=== PATIENT | male | born 1970 | race Caucasian/White ===

== ENCOUNTER 2017-12-19 19:42 | Inpatient (IN) | payer MEDICAID, OTHER ==
[~2017-12-19] VITALS: Ht 177.8 cm; Wt 77.8 kg
[2017-12-19 22:07] LABS: RED BLOOD COUNT 5.26 X10'6 (4.70-6.10); WHITE BLOOD COUNT 25.1 X10'3 (4.5-11.0)
[2017-12-19 22:08] LABS: HEMATOCRIT 51.3 % (42.0-52.0); HEMOGLOBIN 17.6 g/dl (14.0-17.9); MEAN CORPUSCULAR HEMOGLOBIN 33.4 PG (27.0-31.0); MEAN CORPUSCULAR HGB CONC 34.2 % (33.0-36.5); MEAN CORPUSCULAR VOLUME 97.6 FL (78-98); PLATELET COUNT 218 X10'3 (140-440); RED CELL DISTRIBUTION WIDTH 13.8 % (11.5-14.5)
[2017-12-19 22:13] LABS: ALBUMIN 5.4 G/DL (3.4-5.0); ALBUMIN/GLOBULIN RATIO 1.6 (1.1-1.5); ALKALINE PHOSPHATASE 113 IU/L (46-116); ANION GAP 23 (8-16); BILIRUBIN,TOTAL 0.7 MG/DL (0.1-1.0); BLOOD UREA NITROGEN 67 MG/DL (7-18); BUN/CREATININE RATIO 9.5 (5.4-32.0); CALCIUM 7.1 MG/DL (8.5-10.1); CHLORIDE 96 MMOL/L (99-107); CREATININE 7.05 MG/DL (0.60-1.10); GLUCOSE 161 MG/DL (70-104); SODIUM 140 MMOL/L (135-145); TOTAL CARBON DIOXIDE 21.4 MMOL/L (24-32); TOTAL PROTEIN 8.7 G/DL (6.4-8.2); eGFR 8 ML/MIN
[2017-12-19 22:14] LABS: ETHANOL < 0.010 GM/DL (0.0-0.010)
[2017-12-19 22:18] LABS: CLARITY,URINE CLEAR (Clear); COLOR,URINE BROWN (Yellow); GLUCOSE, URINE NEGATIVE (Neg); KETONES,URINE TRACE mg/dl (Neg); LEUKOCYTE ESTERASE ,URINE NEGATIVE (Neg); NITRITES, URINE NEGATIVE (Neg); OCCULT BLOOD,URINE LARGE (Neg); PH,URINE 5.5 (4.8-8.0); PROTEIN,URINE 100 mg/dl (Neg); UROBILINOGEN,URINE 0.2 E.U/dL (0.2-1.0)
[2017-12-19 22:24] LABS: TOTAL CELLS COUNTED 100
[2017-12-19 22:25] LABS: PLATELET ESTIMATE NORMAL
[2017-12-19 22:27] LABS: URINE AMPHETAMINE SCREEN NEGATIVE (Neg); URINE BARBITUATE SCREEN NEGATIVE (Neg); URINE BENZODIAZEPINES SCREEN NEGATIVE (Neg); URINE CANNABINOID SCREEN POSITIVE (Neg); URINE COCAINE SCREEN NEGATIVE (Neg); URINE METHADONE SCREEN NEGATIVE (Neg); URINE OPIATE SCREEN NEGATIVE (Neg); URINE PHENCYCLIDINE SCREEN NEGATIVE (Neg)
[2017-12-19 22:34] LABS: UA COLLECTION TYPE CLN CATCH MIDSTREAM
[2017-12-19 22:35] LABS: AMORPHOUS URATES 1+; COARSE GRANULAR CAST 0-3 /LPF (NEGATIVE); FINE GRANULAR CAST 0-3 /LPF (NEGATIVE)
[2017-12-19 22:36] LABS: BACTERIA,URINE 1+ /HPF (Neg); CELLULAR CAST 0-4 /LPF (NEGATIVE); MUCUS STRANDS MODERATE /LPF (Neg); SPERM FEW /HPF (NEGATIVE); SQUAMOUS EPITHELIAL CELL,UR FEW /LPF (FEW); WBC,URINE 0-4 /HPF (0-4)
[2017-12-19 22:38] LABS: ALANINE AMINOTRANSFERASE 1136 U/L (12-78); ASPARTATE AMINO TRANSFERASE 3878 U/L (10-37)
[2017-12-19] MEDS ORDERED: NO HOME MEDS (22:58)
[2017-12-19] MEDS ORDERED: normal saline 1000ml 1,000 ML IV ONE (23:10)
[2017-12-19 23:30] LABS: ABG BASE EXCESS -10.4 mmol/L (-2.0-3.0); ABG HCO3 14.5 mmol/L (22.0-26.0); ABG OXYGEN SATURATION 95.5 % (95-98); ABG PCO2 (T) 29.5 mmHg (35.0-48.0); ABG PH (T) 7.308 (7.350-7.450); ABG PO2 (T) 83.4 mmHg (83-108); ALLEN'S TEST Positive; FCOHb 0.4 % (0.5-1.5); FMetHb 0.3 % (0.3-1.12); FO2Hb 94.8 % (94-100); PATIENT TEMPERATURE 36.6; RESPIRATORY RATE (OBSERVED) 16 b/min; TOTAL HEMOGLOBIN 15.4 G/dl (14.0-18.0)
[2017-12-19] MEDS ORDERED: CefTRIAXone/D5W-Rocephin 1gm 50 ML IV ONE (23:35)
[2017-12-19] MEDS ORDERED: clindamycin 600mg/D5W 50ml 50 ML IV ONE (23:35)
[2017-12-20] MEDS ORDERED: normal saline 1000ML IV soln IV ONE
[2017-12-20] MEDS ORDERED: normal saline 1000ml 1,000 ML IV ONE (00:05)
[2017-12-20] MEDS ORDERED: acetaminophen 325mg tablet PO PRN ×2 (00:35)
[2017-12-20] MEDS ORDERED: HYDROcodone/acetaminophen 5mg/325mg tablet PO PRN (00:35)
[2017-12-20] MEDS: sodium bicarbonate (8.4%) inj. 150 MEQ in dextrose 5%-water 1,000 ML IV SCH ×3 (01:41→20:37)
[2017-12-20] MEDS: clindamycin 600mg/D5W 50ml 50 ML IV SCH ×4 (01:42→20:01)
[2017-12-20] MEDS: ondansetron/PF 4mg/2ml inj IV PRN (01:55)
[2017-12-20 02:00] VITALS: BP 114/83
[2017-12-20 06:00] VITALS: BP 106/75
[2017-12-20 07:49] LABS: WHITE BLOOD COUNT 18.6 X10'3 (4.5-11.0)
[2017-12-20 07:50] LABS: EOSINOPHILS % (AUTO) 0 % (0-6); HEMATOCRIT 41.3 % (42.0-52.0); HEMOGLOBIN 14.4 g/dl (14.0-17.9); LYMPHOCYTES % (AUTO) 3.6 % (21-51); MEAN CORPUSCULAR HEMOGLOBIN 34.2 PG (27.0-31.0); MEAN CORPUSCULAR HGB CONC 34.8 % (33.0-36.5); MEAN CORPUSCULAR VOLUME 98.3 FL (78-98); MEAN PLATELET VOLUME 9.3 FL (7.4-10.4); MONOCYTES % (AUTO) 2.4 % (2-12); NEUTROPHILS % (AUTO) 93.8 % (42-75); PLATELET COUNT 152 X10'3 (140-440); RED CELL DISTRIBUTION WIDTH 13.5 % (11.5-14.5)
[2017-12-20] MEDS: heparin, porcine 5000 units/ml vial SQ SCH ×2 (07:50→20:02)
[2017-12-20 07:51] LABS: BASOPHILS % (AUTO) 0.2 % (0-1); LYMPHOCYTES # (AUTO) 0.7 X10'3 (1.1-4.8); MONOCYTES # (AUTO) 0.4 X10'3 (0-0.9); NEUTROPHILS # (AUTO) 17.5 X10'3 (1.8-7.7)
[2017-12-20 08:28] LABS: ALANINE AMINOTRANSFERASE 779 U/L (12-78); ALBUMIN 3.8 G/DL (3.4-5.0); ALBUMIN/GLOBULIN RATIO 1.4 (1.1-1.5); ALKALINE PHOSPHATASE 77 IU/L (46-116); ANION GAP 25 (8-16); BILIRUBIN,TOTAL 0.5 MG/DL (0.1-1.0); BLOOD UREA NITROGEN 75 MG/DL (7-18); BUN/CREATININE RATIO 10.1 (5.4-32.0); CHLORIDE 96 MMOL/L (99-107); CREATININE 7.45 MG/DL (0.60-1.10); GLUCOSE 119 MG/DL (70-104); POTASSIUM 5.2 MMOL/L (3.5-5.1); SODIUM 137 MMOL/L (135-145); TOTAL CARBON DIOXIDE 16.1 MMOL/L (24-32); TOTAL PROTEIN 6.5 G/DL (6.4-8.2); eGFR 8 ML/MIN
[2017-12-20 08:39] LABS: ASPARTATE AMINO TRANSFERASE 2236 U/L (10-37)
[2017-12-20 11:00] VITALS: BP 122/82
[2017-12-20 16:30] VITALS: BP 119/79
[2017-12-20 19:00] VITALS: BP 104/71
[2017-12-20] MEDS: lactobacillus rhamnosus 10,000 MMU CELLS/CAPSULE PO SCH (20:02)
[2017-12-20 23:00] VITALS: BP 119/77
[2017-12-21] MEDS: clindamycin 600mg/D5W 50ml 50 ML IV SCH ×4 (02:00→19:58)
[2017-12-21 03:00] VITALS: BP 112/73
[2017-12-21] MEDS: sodium bicarbonate (8.4%) inj. 150 MEQ in dextrose 5%-water 1,000 ML IV SCH ×3 (04:24→16:42)
[2017-12-21 06:00] VITALS: BP 121/81
[2017-12-21 06:59] LABS: BASOPHILS % (AUTO) 0.2 % (0-1); LYMPHOCYTES # (AUTO) 0.9 X10'3 (1.1-4.8)
[2017-12-21 07:23] LABS: ALANINE AMINOTRANSFERASE 692 U/L (12-78); ALBUMIN 3.3 G/DL (3.4-5.0); ALBUMIN/GLOBULIN RATIO 1.2 (1.1-1.5); ALKALINE PHOSPHATASE 69 IU/L (46-116); ANION GAP 19 (8-16); BILIRUBIN,TOTAL 0.5 MG/DL (0.1-1.0); BLOOD UREA NITROGEN 97 MG/DL (7-18); BUN/CREATININE RATIO 9.7 (5.4-32.0); CHLORIDE 90 MMOL/L (99-107); CREATININE 9.95 MG/DL (0.60-1.10); GLUCOSE 104 MG/DL (70-104); MAGNESIUM 2.7 MG/DL (1.5-2.4); POTASSIUM 4.6 MMOL/L (3.5-5.1); SODIUM 134 MMOL/L (135-145); TOTAL CARBON DIOXIDE 24.6 MMOL/L (24-32); eGFR 6 ML/MIN
[2017-12-21 07:25] LABS: ASPARTATE AMINO TRANSFERASE 1371 U/L (10-37); PHOSPHORUS 11.6 MG/DL (2.3-4.5)
[2017-12-21 07:38] LABS: EOSINOPHILS % (AUTO) 0.1 % (0-6); HEMATOCRIT 34.8 % (42.0-52.0); HEMOGLOBIN 12.8 g/dl (14.0-17.9); LYMPHOCYTES % (AUTO) 7.3 % (21-51); MEAN CORPUSCULAR HEMOGLOBIN 35.4 PG (27.0-31.0); MEAN CORPUSCULAR VOLUME 96.3 FL (78-98); MEAN PLATELET VOLUME 8.8 FL (7.4-10.4); MONOCYTES # (AUTO) 0.4 X10'3 (0-0.9); MONOCYTES % (AUTO) 3.1 % (2-12); NEUTROPHILS # (AUTO) 11.6 X10'3 (1.8-7.7); NEUTROPHILS % (AUTO) 89.3 % (42-75); PLATELET COUNT 93 X10'3 (140-440); RED BLOOD COUNT 3.62 X10'6 (4.70-6.10); RED CELL DISTRIBUTION WIDTH 13.2 % (11.5-14.5); WHITE BLOOD COUNT 12.9 X10'3 (4.5-11.0)
[2017-12-21 07:39] LABS: UA EOSINOPHILS NO EOS /HPF
[2017-12-21] MEDS: lactobacillus rhamnosus 10,000 MMU CELLS/CAPSULE PO SCH ×2 (07:48→19:58)
[2017-12-21] MEDS: heparin, porcine 5000 units/ml vial SQ SCH ×2 (07:48→19:58)
[2017-12-21 08:16] LABS: MEAN CORPUSCULAR HGB CONC 36.8 % (33.0-36.5)
[2017-12-21 11:00] VITALS: BP 121/41
[2017-12-21 15:00] VITALS: BP 121/83
[2017-12-21 19:00] VITALS: BP 97/74
[2017-12-21] MEDS ORDERED: ipratropium/albuterol 3ml nebule NEB PRN (23:40)
[2017-12-21 23:56] LABS: ABG BASE EXCESS 0.5 mmol/L (-2.0-3.0); ABG HCO3 23.8 mmol/L (22.0-26.0); ABG OXYGEN SATURATION 83.5 % (95-98); ABG PCO2 (T) 34.5 mmHg (35.0-48.0); ABG PH (T) 7.457 (7.350-7.450); ABG PO2 (T) 50.9 mmHg (83-108); ALLEN'S TEST Positive; FCOHb 0.3 % (0.5-1.5); FLOW 15 L/min; FMetHb 0.1 % (0.3-1.12); FO2Hb 83.2 % (94-100); PATIENT TEMPERATURE 37.1; TOTAL HEMOGLOBIN 14.2 G/dl (14.0-18.0)
[2017-12-22] VITALS (19 sets, daily range): BP systolic 91–136; BP diastolic 39–87
[2017-12-22] MEDS: sodium bicarbonate (8.4%) inj. 150 MEQ in dextrose 5%-water 1,000 ML IV SCH (00:51)
[2017-12-22] MEDS: clindamycin 600mg/D5W 50ml 50 ML IV SCH ×4 (01:01→20:42)
[2017-12-22 01:02] LABS: ALBUMIN 3.2 G/DL (3.4-5.0); ANION GAP 19 (8-16); BLOOD UREA NITROGEN 110 MG/DL (7-18); BUN/CREATININE RATIO 9.5 (5.4-32.0); CHLORIDE 84 MMOL/L (99-107); GLUCOSE 127 MG/DL (70-104); MAGNESIUM 2.5 MG/DL (1.5-2.4); POTASSIUM 4.5 MMOL/L (3.5-5.1); SODIUM 129 MMOL/L (135-145); TOTAL CARBON DIOXIDE 26.3 MMOL/L (24-32); eGFR 5 ML/MIN
[2017-12-22 01:10] LABS: D-DIMER 3.09 MG/L FEU (0-0.50); PARTIAL THROMBOPLASTIN TIME 28 SECONDS (22-32); PROTHROMBIN TIME 10.6 SECONDS (9.0-12.0)
[2017-12-22 01:20] LABS: ALANINE AMINOTRANSFERASE 669 U/L (12-78); ALBUMIN/GLOBULIN RATIO 1.1 (1.1-1.5); ALKALINE PHOSPHATASE 76 IU/L (46-116); BILIRUBIN,TOTAL 0.5 MG/DL (0.1-1.0); TOTAL PROTEIN 6.2 G/DL (6.4-8.2)
[2017-12-22 01:30] LABS: BASOPHILS % (AUTO) 0.3 % (0-1); EOSINOPHILS % (AUTO) 0.1 % (0-6); HEMATOCRIT 37.6 % (42.0-52.0); HEMOGLOBIN 13.1 g/dl (14.0-17.9); LYMPHOCYTES # (AUTO) 0.6 X10'3 (1.1-4.8); LYMPHOCYTES % (AUTO) 5.1 % (21-51); MEAN CORPUSCULAR HEMOGLOBIN 33.6 PG (27.0-31.0); MEAN CORPUSCULAR HGB CONC 34.8 % (33.0-36.5); MEAN CORPUSCULAR VOLUME 96.6 FL (78-98); MEAN PLATELET VOLUME 9.2 FL (7.4-10.4); MONOCYTES # (AUTO) 0.2 X10'3 (0-0.9); MONOCYTES % (AUTO) 1.6 % (2-12); NEUTROPHILS # (AUTO) 11.8 X10'3 (1.8-7.7); NEUTROPHILS % (AUTO) 92.9 % (42-75); PLATELET COUNT 107 X10'3 (140-440); RED BLOOD COUNT 3.89 X10'6 (4.70-6.10); RED CELL DISTRIBUTION WIDTH 13.1 % (11.5-14.5); WHITE BLOOD COUNT 12.6 X10'3 (4.5-11.0)
[2017-12-22 01:52] LABS: CALCIUM 6.7 MG/DL (8.5-10.1); PHOSPHORUS 10.9 MG/DL (2.3-4.5)
[2017-12-22 01:53] LABS: ASPARTATE AMINO TRANSFERASE 1209 U/L (10-37)
[2017-12-22] MEDS ORDERED: furosemide 40mg/4ml inj IV ONE (02:05)
[2017-12-22] MEDS ORDERED: LORazepam 2 mg/ml vial IM ONE (03:05)
[2017-12-22] MEDS ORDERED: LORazepam 2 mg/ml vial IV ONE ×2 (03:15→06:15)
[2017-12-22 03:21] LABS: ABG BASE EXCESS 1.1 mmol/L (-2.0-3.0); ABG HCO3 24.8 mmol/L (22.0-26.0); ABG OXYGEN SATURATION 97.2 % (95-98); ABG PCO2 (T) 35.8 mmHg (35.0-48.0); ABG PH (T) 7.457 (7.350-7.450); ABG PO2 (T) 102.9 mmHg (83-108); ALLEN'S TEST Positive; FCOHb 0.3 % (0.5-1.5); FMetHb 0.2 % (0.3-1.12); FO2Hb 96.7 % (94-100); PATIENT TEMPERATURE 36.6; TOTAL HEMOGLOBIN 13.7 G/dl (14.0-18.0)
[2017-12-22] MEDS ORDERED: LORazepam 2 mg/ml vial ONE (06:06)
[2017-12-22] MEDS ORDERED: heparin 1,000 units/ml 10ml inj IV ONE (06:25)
[2017-12-22] MEDS ORDERED: heparin 1,000 units/ml 10ml inj HE ONE ×3 (06:30→06:35)
[2017-12-22] MEDS: lactobacillus rhamnosus 10,000 MMU CELLS/CAPSULE PO SCH ×2 (08:00→20:00)
[2017-12-22] MEDS: sevelamer carbonate 800mg tablet PO SCH ×3 (08:30→17:30)
[2017-12-22] MEDS: heparin, porcine 5000 units/ml vial SQ SCH ×2 (10:09→20:42)
[2017-12-22] MEDS: dexmedetomidin/NS 400mcg/100ml 100 ML IV SCH ×2 (10:29→18:13)
[2017-12-22 12:34] LABS: BASOPHILS % (AUTO) 0.1 % (0-1); EOSINOPHILS % (AUTO) 0 % (0-6); HEMATOCRIT 40.3 % (42.0-52.0); HEMOGLOBIN 14.1 g/dl (14.0-17.9); LYMPHOCYTES # (AUTO) 0.3 X10'3 (1.1-4.8); LYMPHOCYTES % (AUTO) 2.3 % (21-51); MEAN CORPUSCULAR HEMOGLOBIN 33.4 PG (27.0-31.0); MEAN CORPUSCULAR VOLUME 95.7 FL (78-98); MEAN PLATELET VOLUME 9.5 FL (7.4-10.4); MONOCYTES # (AUTO) 0.3 X10'3 (0-0.9); MONOCYTES % (AUTO) 2.5 % (2-12); NEUTROPHILS # (AUTO) 12.7 X10'3 (1.8-7.7); NEUTROPHILS % (AUTO) 95.1 % (42-75); PLATELET COUNT 113 X10'3 (140-440); RED BLOOD COUNT 4.21 X10'6 (4.70-6.10); RED CELL DISTRIBUTION WIDTH 13.1 % (11.5-14.5); WHITE BLOOD COUNT 13.3 X10'3 (4.5-11.0)
[2017-12-22 12:46] LABS: ALANINE AMINOTRANSFERASE 651 U/L (12-78); ALBUMIN 3.4 G/DL (3.4-5.0); ALBUMIN/GLOBULIN RATIO 0.9 (1.1-1.5); ALKALINE PHOSPHATASE 79 IU/L (46-116); ANION GAP 14 (8-16); ASPARTATE AMINO TRANSFERASE 901 U/L (10-37); BILIRUBIN,TOTAL 0.9 MG/DL (0.1-1.0); BLOOD UREA NITROGEN 62 MG/DL (7-18); BUN/CREATININE RATIO 7.7 (5.4-32.0); CALCIUM 7.1 MG/DL (8.5-10.1); CHLORIDE 91 MMOL/L (99-107); CREATININE 8.04 MG/DL (0.60-1.10); GLUCOSE 94 MG/DL (70-104); MAGNESIUM 2.4 MG/DL (1.5-2.4); POTASSIUM 4.9 MMOL/L (3.5-5.1); SODIUM 133 MMOL/L (135-145); TOTAL CARBON DIOXIDE 28.3 MMOL/L (24-32); eGFR 7 ML/MIN
[2017-12-23] VITALS (24 sets, daily range): BP systolic 102–136; BP diastolic 50–92
[2017-12-23] MEDS: clindamycin 600mg/D5W 50ml 50 ML IV SCH ×2 (02:01→07:49)
[2017-12-23 03:45] LABS: ALANINE AMINOTRANSFERASE 458 U/L (12-78); ALBUMIN 2.7 G/DL (3.4-5.0); ALBUMIN/GLOBULIN RATIO 0.8 (1.1-1.5); ALKALINE PHOSPHATASE 73 IU/L (46-116); ANION GAP 15 (8-16); ASPARTATE AMINO TRANSFERASE 396 U/L (10-37); BILIRUBIN,TOTAL 0.7 MG/DL (0.1-1.0); BLOOD UREA NITROGEN 83 MG/DL (7-18); BUN/CREATININE RATIO 8.1 (5.4-32.0); CHLORIDE 91 MMOL/L (99-107); CREATININE 10.22 MG/DL (0.60-1.10); GLUCOSE 95 MG/DL (70-104); MAGNESIUM 2.3 MG/DL (1.5-2.4); PHOSPHORUS 8.1 MG/DL (2.3-4.5); POTASSIUM 5.2 MMOL/L (3.5-5.1); SODIUM 132 MMOL/L (135-145); TOTAL CARBON DIOXIDE 25.6 MMOL/L (24-32); TOTAL PROTEIN 6.2 G/DL (6.4-8.2); eGFR 5 ML/MIN
[2017-12-23 04:00] LABS: CALCIUM 5.7 MG/DL (8.5-10.1)
[2017-12-23] MEDS ORDERED: calcium chloride 100 MG/1 ML inj IV ONE (04:10)
[2017-12-23 04:25] LABS: BASOPHILS % (AUTO) 0.3 % (0-1); EOSINOPHILS % (AUTO) 0.3 % (0-6); HEMATOCRIT 37.7 % (42.0-52.0); LYMPHOCYTES # (AUTO) 0.6 X10'3 (1.1-4.8); LYMPHOCYTES % (AUTO) 6.4 % (21-51); MEAN CORPUSCULAR HEMOGLOBIN 33.5 PG (27.0-31.0); MEAN CORPUSCULAR HGB CONC 34.4 % (33.0-36.5); MEAN CORPUSCULAR VOLUME 97.6 FL (78-98); MEAN PLATELET VOLUME 9.9 FL (7.4-10.4); MONOCYTES # (AUTO) 0.5 X10'3 (0-0.9); MONOCYTES % (AUTO) 5.2 % (2-12); NEUTROPHILS # (AUTO) 8.8 X10'3 (1.8-7.7); NEUTROPHILS % (AUTO) 87.8 % (42-75); PLATELET COUNT 105 X10'3 (140-440); RED BLOOD COUNT 3.87 X10'6 (4.70-6.10); RED CELL DISTRIBUTION WIDTH 13.2 % (11.5-14.5); WHITE BLOOD COUNT 9.9 X10'3 (4.5-11.0)
[2017-12-23] MEDS ORDERED: calcium chloride inj. 1,000 MG in normal saline 100ml IV soln 90 ML IV ONE (04:30)
[2017-12-23] MEDS: dexmedetomidin/NS 400mcg/100ml 100 ML IV SCH (05:11)
[2017-12-23] MEDS: sevelamer carbonate 800mg tablet PO SCH ×3 (07:49→17:46)
[2017-12-23] MEDS: lactobacillus rhamnosus 10,000 MMU CELLS/CAPSULE PO SCH ×2 (07:49→21:52)
[2017-12-23] MEDS: aspirin 81mg tab.chew PO SCH (07:50)
[2017-12-23] MEDS: heparin, porcine 5000 units/ml vial SQ SCH ×2 (07:50→21:51)
[2017-12-23] MEDS ORDERED: heparin 1,000unit/ml 10ml vial 10 ML IV ONE (08:52)
[2017-12-23] MEDS ORDERED: heparin 1,000 units/ml 10ml inj HE ONE ×2 (09:00→15:05)
[2017-12-23 10:34] LABS: ALBUMIN 2.7 G/DL (3.4-5.0); ANION GAP 19 (8-16); BLOOD UREA NITROGEN 91 MG/DL (7-18); BUN/CREATININE RATIO 8.1 (5.4-32.0); CALCIUM 6.5 MG/DL (8.5-10.1); CHLORIDE 90 MMOL/L (99-107); GLUCOSE 144 MG/DL (70-104); PHOSPHORUS 8.3 MG/DL (2.3-4.5); POTASSIUM 4.7 MMOL/L (3.5-5.1); SODIUM 132 MMOL/L (135-145); TOTAL CARBON DIOXIDE 23.3 MMOL/L (24-32); eGFR 5 ML/MIN
[2017-12-23] MEDS: clindamycin 150mg capsule PO SCH ×2 (14:14→22:21)
[2017-12-24] VITALS (22 sets, daily range): BP systolic 106–147; BP diastolic 65–96
[2017-12-24] MEDS: clindamycin 150mg capsule PO SCH ×4 (03:01→19:48)
[2017-12-24 05:41] LABS: BASOPHILS # (AUTO) 0.1 X10'3 (0-0.2); BASOPHILS % (AUTO) 0.5 % (0-1); EOSINOPHILS # (AUTO) 0.1 X10'3 (0-0.9); EOSINOPHILS % (AUTO) 1.2 % (0-6); HEMATOCRIT 42.1 % (42.0-52.0); HEMOGLOBIN 14.5 g/dl (14.0-17.9); LYMPHOCYTES # (AUTO) 0.8 X10'3 (1.1-4.8); LYMPHOCYTES % (AUTO) 7.2 % (21-51); MEAN CORPUSCULAR HEMOGLOBIN 33.7 PG (27.0-31.0); MEAN CORPUSCULAR HGB CONC 34.5 % (33.0-36.5); MEAN CORPUSCULAR VOLUME 97.7 FL (78-98); MEAN PLATELET VOLUME 9.6 FL (7.4-10.4); MONOCYTES # (AUTO) 0.6 X10'3 (0-0.9); MONOCYTES % (AUTO) 5.2 % (2-12); NEUTROPHILS # (AUTO) 9.3 X10'3 (1.8-7.7); NEUTROPHILS % (AUTO) 85.9 % (42-75); PLATELET COUNT 132 X10'3 (140-440); RED BLOOD COUNT 4.31 X10'6 (4.70-6.10); RED CELL DISTRIBUTION WIDTH 13.3 % (11.5-14.5); WHITE BLOOD COUNT 10.9 X10'3 (4.5-11.0)
[2017-12-24 06:00] LABS: ALANINE AMINOTRANSFERASE 381 U/L (12-78); ALBUMIN 2.8 G/DL (3.4-5.0); ALBUMIN/GLOBULIN RATIO 0.7 (1.1-1.5); ALKALINE PHOSPHATASE 73 IU/L (46-116); ANION GAP 16 (8-16); ASPARTATE AMINO TRANSFERASE 228 U/L (10-37); BILIRUBIN,TOTAL 0.7 MG/DL (0.1-1.0); BLOOD UREA NITROGEN 65 MG/DL (7-18); BUN/CREATININE RATIO 7.3 (5.4-32.0); CALCIUM 7.1 MG/DL (8.5-10.1); CHLORIDE 93 MMOL/L (99-107); CREATININE 8.91 MG/DL (0.60-1.10); GLUCOSE 100 MG/DL (70-104); MAGNESIUM 2.3 MG/DL (1.5-2.4); PHOSPHORUS 6.1 MG/DL (2.3-4.5); POTASSIUM 4.3 MMOL/L (3.5-5.1); SODIUM 134 MMOL/L (135-145); TOTAL CARBON DIOXIDE 25.4 MMOL/L (24-32); TOTAL PROTEIN 6.6 G/DL (6.4-8.2); eGFR 6 ML/MIN
[2017-12-24] MEDS: aspirin 81mg tab.chew PO SCH (07:42)
[2017-12-24] MEDS: sevelamer carbonate 800mg tablet PO SCH ×3 (07:42→17:21)
[2017-12-24] MEDS: lactobacillus rhamnosus 10,000 MMU CELLS/CAPSULE PO SCH ×2 (07:42→19:48)
[2017-12-24] MEDS: heparin, porcine 5000 units/ml vial SQ SCH ×2 (07:43→19:49)
[2017-12-25] MEDS: clindamycin 150mg capsule PO SCH ×4 (01:39→22:48)
[2017-12-25 03:00] VITALS: BP 135/84
[2017-12-25 05:19] LABS: HBSAG SCREEN Negative (Negative)
[2017-12-25 05:26] LABS: BASOPHILS % (AUTO) 0.2 % (0-1); EOSINOPHILS # (AUTO) 0.4 X10'3 (0-0.9); EOSINOPHILS % (AUTO) 3.4 % (0-6); HEMATOCRIT 42.4 % (42.0-52.0); HEMOGLOBIN 14.7 g/dl (14.0-17.9); LYMPHOCYTES # (AUTO) 0.9 X10'3 (1.1-4.8); LYMPHOCYTES % (AUTO) 7.9 % (21-51); MEAN CORPUSCULAR HEMOGLOBIN 33.8 PG (27.0-31.0); MEAN CORPUSCULAR HGB CONC 34.8 % (33.0-36.5); MEAN CORPUSCULAR VOLUME 97.2 FL (78-98); MEAN PLATELET VOLUME 9.5 FL (7.4-10.4); MONOCYTES # (AUTO) 0.7 X10'3 (0-0.9); MONOCYTES % (AUTO) 6.2 % (2-12); NEUTROPHILS # (AUTO) 9.7 X10'3 (1.8-7.7); NEUTROPHILS % (AUTO) 82.3 % (42-75); PLATELET COUNT 153 X10'3 (140-440); RED BLOOD COUNT 4.36 X10'6 (4.70-6.10); RED CELL DISTRIBUTION WIDTH 12.9 % (11.5-14.5); WHITE BLOOD COUNT 11.7 X10'3 (4.5-11.0)
[2017-12-25 05:58] LABS: ALANINE AMINOTRANSFERASE 254 U/L (12-78); ALBUMIN 2.6 G/DL (3.4-5.0); ALBUMIN/GLOBULIN RATIO 0.7 (1.1-1.5); ALKALINE PHOSPHATASE 70 IU/L (46-116); ANION GAP 16 (8-16); ASPARTATE AMINO TRANSFERASE 102 U/L (10-37); BILIRUBIN,TOTAL 0.6 MG/DL (0.1-1.0); BLOOD UREA NITROGEN 91 MG/DL (7-18); BUN/CREATININE RATIO 7.9 (5.4-32.0); CALCIUM 7.1 MG/DL (8.5-10.1); CHLORIDE 90 MMOL/L (99-107); CREATININE 11.57 MG/DL (0.60-1.10); GLUCOSE 115 MG/DL (70-104); MAGNESIUM 2.4 MG/DL (1.5-2.4); POTASSIUM 4.3 MMOL/L (3.5-5.1); SODIUM 131 MMOL/L (135-145); TOTAL CARBON DIOXIDE 25.1 MMOL/L (24-32); TOTAL PROTEIN 6.2 G/DL (6.4-8.2); eGFR 5 ML/MIN
[2017-12-25 06:00] VITALS: BP 129/88
[2017-12-25] MEDS: lactobacillus rhamnosus 10,000 MMU CELLS/CAPSULE PO SCH ×2 (08:00→21:44)
[2017-12-25] MEDS ORDERED: heparin 1,000 units/ml 10ml inj HE ONE ×2 (08:00)
[2017-12-25] MEDS ORDERED: heparin 1,000unit/ml 10ml vial 10 ML IV ONE (08:00)
[2017-12-25] MEDS ORDERED: normal saline 1000ml 250 ML IV PRN (08:00)
[2017-12-25] MEDS: sevelamer carbonate 800mg tablet PO SCH ×3 (08:30→17:47)
[2017-12-25] MEDS: heparin, porcine 5000 units/ml vial SQ SCH ×2 (09:18→21:45)
[2017-12-25] MEDS: ondansetron/PF 4mg/2ml inj IV PRN (10:32)
[2017-12-25 11:00] VITALS: BP 131/89
[2017-12-25 15:00] VITALS: BP 133/82
[2017-12-25 19:00] VITALS: BP 138/81
[2017-12-25 23:00] VITALS: BP 133/90
[2017-12-26] MEDS: clindamycin 150mg capsule PO SCH ×4 (02:00→19:54)
[2017-12-26 03:00] VITALS: BP 145/92
[2017-12-26 06:00] VITALS: BP 140/86
[2017-12-26] MEDS: lactobacillus rhamnosus 10,000 MMU CELLS/CAPSULE PO SCH ×2 (08:04→19:54)
[2017-12-26] MEDS: sevelamer carbonate 800mg tablet PO SCH ×3 (08:04→17:54)
[2017-12-26] MEDS: heparin, porcine 5000 units/ml vial SQ SCH ×2 (08:05→19:55)
[2017-12-26 11:00] VITALS: BP 129/82
[2017-12-26] MEDS ORDERED: heparin 1,000 units/ml 10ml inj HE ONE (12:50)
[2017-12-26] MEDS: ondansetron/PF 4mg/2ml inj IV PRN (13:02)
[2017-12-26 15:00] VITALS: BP 137/81
[2017-12-26] MEDS ORDERED: fentaNYL/PF 50MCG/1 ML 2ML syringe ONE (16:51)
[2017-12-26] MEDS ORDERED: heparin 1,000unit/ml 10ml vial 10 ML ONE (16:52)
[2017-12-26] MEDS ORDERED: normal saline 1000ml 1,000 ML IV SCH (16:54)
[2017-12-26] MEDS ORDERED: midazolam 2 mg/2 ml injection IV PRN (16:55)
[2017-12-26] MEDS ORDERED: fentaNYL/PF 50MCG/1 ML 2ML syringe IV PRN (16:55)
[2017-12-26] MEDS ORDERED: LIDOcaine 1%/PF 5ML 10 MG/ML VIAL SQ ONE (16:55)
[2017-12-26] MEDS ORDERED: heparin 1,000 units/ml 10ml inj ICATH ONE (16:55)
[2017-12-26 19:00] VITALS: BP 139/79
[2017-12-26 23:00] VITALS: BP 117/71
[2017-12-27] MEDS: clindamycin 150mg capsule PO SCH (01:59)
[2017-12-27] MEDS: ondansetron/PF 4mg/2ml inj IV PRN (02:44)
[2017-12-27 03:00] VITALS: BP 163/83
[2017-12-27 07:00] VITALS: BP 130/80
[2017-12-27] MEDS ORDERED: normal saline 1000ml 250 ML IV PRN (08:00)
[2017-12-27] MEDS ORDERED: heparin 1,000unit/ml 10ml vial 10 ML IV ONE (08:00)
[2017-12-27] MEDS ORDERED: heparin 1,000 units/ml 10ml inj HE ONE ×2 (08:00)
[2017-12-27] MEDS: sevelamer carbonate 800mg tablet PO SCH ×3 (08:51→18:00)
[2017-12-27] MEDS: lactobacillus rhamnosus 10,000 MMU CELLS/CAPSULE PO SCH ×2 (08:51→19:35)
[2017-12-27] MEDS: heparin, porcine 5000 units/ml vial SQ SCH ×2 (08:55→19:35)
[2017-12-27 11:00] VITALS: BP 148/89
[2017-12-27 16:07] VITALS: BP 150/79
[2017-12-27 19:00] VITALS: BP 141/86
[2017-12-27 23:00] VITALS: BP 139/74
[2017-12-28 03:00] VITALS: BP 142/81
[2017-12-28 07:00] VITALS: BP 150/89
[2017-12-28] MEDS: sevelamer carbonate 800mg tablet PO SCH ×3 (08:35→17:46)
[2017-12-28] MEDS: lactobacillus rhamnosus 10,000 MMU CELLS/CAPSULE PO SCH (08:36)
[2017-12-28] MEDS: heparin, porcine 5000 units/ml vial SQ SCH (08:36)
[2017-12-28 11:00] VITALS: BP 152/59
[2017-12-28] MEDS ORDERED: SEVE800T8 PO (16:34)
[2017-12-28] MEDS ORDERED: VIT1TABL48 PO (16:34)
[2017-12-28] MEDS ORDERED: FOLI1TAB16 PO (16:34)
[2017-12-28 17:00] VITALS: BP 150/82
== END 2017-12-28 18:00 | disposition home or self-care (01) | DRG 52 ==
LOC: ER 19:43 → ED HOLD 12-20 00:35 → EDBEDREQ 12-20 01:06 → PCU 3S 12-20 01:23 → CICU 2S 12-22 05:45 → PCU 3S 12-24 21:27
PROVIDERS: ADMIT Internal Medicine Critical Care Medicine; ATTEND Internal Medicine Critical Care Medicine
PROC: 5A09357 Assistance with Respiratory Ventilation, Less than 24 Consecutive Hours, Continuous Positive Airway Pressure (ICD-10-PCS; principal; 2017-12-22)
PROC: 5A1D70Z Performance of Urinary Filtration, Intermittent, Less than 6 Hours Per Day (ICD-10-PCS; 2017-12-22)
PROC: 5A1D70Z Performance of Urinary Filtration, Intermittent, Less than 6 Hours Per Day (ICD-10-PCS; 2017-12-23)
PROC: 5A1D70Z Performance of Urinary Filtration, Intermittent, Less than 6 Hours Per Day (ICD-10-PCS; 2017-12-25)
PROC: 0JH63XZ Insertion of Tunneled Vascular Access Device into Chest Subcutaneous Tissue and Fascia, Percutaneous Approach (ICD-10-PCS; 2017-12-26)
PROC: 02HV33Z Insertion of Infusion Device into Superior Vena Cava, Percutaneous Approach (ICD-10-PCS; 2017-12-26)
PROC: B548ZZA Ultrasonography of Superior Vena Cava, Guidance (ICD-10-PCS; 2017-12-26)
PROC: 5A1D70Z Performance of Urinary Filtration, Intermittent, Less than 6 Hours Per Day (ICD-10-PCS; 2017-12-27)
DX: G93.40 Encephalopathy, unspecified (principal); N17.0 Acute kidney failure with tubular necrosis; J69.0 Pneumonitis due to inhalation of food and vomit; T79.6XXA Traumatic ischemia of muscle, initial encounter; L03.114 Cellulitis of left upper limb; I42.9 Cardiomyopathy, unspecified; F12.90 Cannabis use, unspecified, uncomplicated; R29.6 Repeated falls; R06.03 Acute respiratory distress; W19.XXXA Unspecified fall, initial encounter; F41.9 Anxiety disorder, unspecified; R44.3 Hallucinations, unspecified; R74.0 Nonspecific elevation of levels of transaminase and lactic acid dehydrogenase [LDH]; Z99.2 Dependence on renal dialysis; Y93.89 Activity, other specified; Y92.89 Other specified places as the place of occurrence of the external cause; Y99.8 Other external cause status
CPT/HCPCS: 36415; 36558; 36600; 70450; 71045; 73090; 76700; 76937; 77001; 80053; 80069; 80305; 80320; 80329; 81001; 82140; 82570; 82803; 83605; 83735; 83874; 83880; 83935; 84100; 84133; 84145; 84156; 84300; 84443; 84484; 85018; 85025; 85379; 85610; 85730; 87040; 87070; 87207; 87340; 90935; 93306; 93971; 94640; 94660; 94760; 96365; 96368; 97162; 97530; 99285; A4620; A9270; C1750; C1894; G0257; J0696; J1644; J1940; J2060; J2150; J2405; J3010; J3490; J7030

== ENCOUNTER 2023-11-04 09:36 | Emergency (ER) | payer MEDICAID, OTHER ==
[~2023-11-04] VITALS: Ht 177.8 cm; Wt 81.0 kg
[~2023-11-04 09:36] MED LIST: FOLI1TAB27 PO; NO HOME MEDS; SEVE800T8 PO; VIT1TABL48 PO
[2023-11-04 10:03] VITALS: BP 120/103; PULSE 71; TEMP 98; O2SAT 96
[2023-11-04 10:24] VITALS: RESP 16
[2023-11-04] MEDS: ketorolac trometh 30MG/ML vial 30 MG/ML VIAL IM ONE (10:24)
== END 2023-11-04 10:45 | disposition home or self-care (01) ==
LOC: ER 09:37
DX: S93.602A Unspecified sprain of left foot, initial encounter (principal); F12.90 Cannabis use, unspecified, uncomplicated; Z79.899 Other long term (current) drug therapy; V29.888A Rider (driver) (passenger) of other motorcycle injured in other specified transport accidents, initial encounter; Y93.89 Activity, other specified; Y92.89 Other specified places as the place of occurrence of the external cause; Y99.8 Other external cause status
CPT/HCPCS: 73630; 96372; 99283; J1885

== ENCOUNTER 2024-07-11 08:24 | Day surgery (SDC) | payer OTHER ==
--- NOTE | 2024-07-07 13:51 | ELECTROCARDIOGRAPH REPORT ---
[facility] Test Date: 2024-07-07 Test Time: 13:49:05 Pat Name: QUINTEN EVANS Department: [facility]-PRE-OP Patient ID: [facility]-[id number] Room: Gender: M [employer] C[employer] Apprentice: GUERRERO : 1970 Requested By: VINAY NDIAYE Order Number: [id number] Reading MD: Dr. HEATHER Paul Measurements Intervals [place] Rate: 49 P: 77 [place]: 167 QRS: 79 QRSD: 100 T: 72 QT: 453 QTc: 409 Interpretive Statements Sinus bradycardia ST elevation, consider anterior injury Electronically Signed On 07-08-2024 18:32:[address] HEATHER Paul Please click the below link to view image of tracing.
[2024-07-07 14:09] LABS: BASOPHILS # (AUTO) 0.1 X10'3 (0-0.2); BASOPHILS % (AUTO) 0.7 % (0-1); EOSINOPHILS # (AUTO) 0.2 X10'3 (0-0.9); EOSINOPHILS % (AUTO) 2.8 % (0-6); LYMPHOCYTES # (AUTO) 2.6 X10'3 (1.1-4.8); LYMPHOCYTES % (AUTO) 35.9 % (21-51); MEAN CORPUSCULAR HEMOGLOBIN 33.4 PG (27.0-31.0); MEAN CORPUSCULAR HGB CONC 34.5 g/dL (33.0-36.5); MEAN CORPUSCULAR VOLUME 96.6 FL (78-98); MEAN PLATELET VOLUME 8.1 FL (7.4-10.4); MONOCYTES # (AUTO) 0.5 X10'3 (0-0.9); MONOCYTES % (AUTO) 6.9 % (2-12); NEUTROPHILS # (AUTO) 3.9 X10'3 (1.8-7.7); NEUTROPHILS % (AUTO) 53.7 % (42-75); PRE OP HEMATOCRIT 42.7 % (42.0-52.0); PRE OP HEMOGLOBIN 14.7 g/dL (14.0-17.9); PRE OP PLATELET COUNT 203 X10'3 (140-440); PRE OP WHITE BLOOD COUNT 7.2 10'3 (4.8-10.8); RED BLOOD COUNT 4.41 X10'6 (4.70-6.10); RED CELL DISTRIBUTION WIDTH 13.6 % (11.5-14.5)
[2024-07-07 14:26] LABS: ALBUMIN 3.9 G/DL (3.4-5.0); ALBUMIN/GLOBULIN RATIO 1.3 (1.1-1.5); ALKALINE PHOSPHATASE 87 IU/L (46-116); BLOOD UREA NITROGEN 14 MG/DL (7-18); BUN/CREATININE RATIO 14.4 (10.0-20.0); CALCIUM 8.6 MG/DL (8.5-10.1); CHLORIDE 103 MMOL/L (99-107); CREATININE 0.97 MG/DL (0.60-1.10); PRE OP ALT 27 U/L (30-65); PRE OP ANION GAP 7 (8-16); PRE OP AST 16 U/L (10-37); PRE OP BILIRUB, TOTAL 0.2 MG/DL (0.0-1.0); PRE OP GLUCOSE 95 MG/DL (70-104); PRE OP POTASSIUM 4.3 MMOL/L (3.4-5.1); PRE OP SODIUM 138 MMOL/L (135-145); TOTAL CARBON DIOXIDE 27.9 MMOL/L (24-32); TOTAL PROTEIN 6.9 G/DL (6.4-8.2); eGFR 80 ML/MIN
[2024-07-11] VITALS (7 sets, daily range): BP systolic 122–137; BP diastolic 62–90; PULSE 56–64; RESP 11–17; TEMP 97.1; O2SAT 92–99
[~2024-07-11] VITALS: Ht 177.8 cm; Wt 85.3 kg
[2024-07-11] MEDS: ceFAZolin 2gm in dextrose, iso 50 ML IV ONE (05:30)
[~2024-07-11 08:24] MED LIST changes: -FOLI1TAB27 PO; -SEVE800T8 PO; -VIT1TABL48 PO
[2024-07-11] MEDS: famotidine 20mg tablet PO ONE (09:17)
[2024-07-11] MEDS: ringers solution, lacted 1,000 ML IV SCH (09:18)
[2024-07-11] MEDS ORDERED: bacitracin 15gm ointment TP ONE (10:33)
[2024-07-11 11:38] LABS: BILIRUBIN,URINE NEGATIVE (Neg); CLARITY,URINE CLEAR (Clear); COLOR,URINE YELLOW (Yellow); GLUCOSE, URINE NEGATIVE (Neg); KETONES,URINE NEGATIVE (Neg); LEUKOCYTE ESTERASE ,URINE NEGATIVE (Neg); NITRITES, URINE NEGATIVE (Neg); OCCULT BLOOD,URINE NEGATIVE (Neg); PH,URINE 6.5 (4.8-8.0); PROTEIN,URINE NEGATIVE (Neg); UROBILINOGEN,URINE 0.2 E.U/dL (0.2-1.0)
[2024-07-11 11:46] LABS: UA COLLECTION TYPE CLN CATCH MIDSTREAM
[2024-07-11] MEDS ORDERED: sevoflurane 250ml liquid IH ONE (12:03)
[2024-07-11] MEDS ORDERED: midazolam 1 mg/ML 2ml injection ONE (12:10)
[2024-07-11] MEDS ORDERED: fentaNYL/PF 50MCG/1 ML 2ML syringe ONE (12:10)
[2024-07-11] MEDS ORDERED: 0.9 % SODIUM CHLORIDE 10 ML VIAL ONE ×2 (12:41)
[2024-07-11] MEDS ORDERED: dexamethasone sod phosphate 4mg/ml inj. ONE (12:42)
[2024-07-11] MEDS ORDERED: ePHEDrine 50MG/ML INJ. ONE (12:42)
[2024-07-11] MEDS ORDERED: ROPIVAcaine 0.5% (5mg/ml) 30ml vial ONE (12:42)
[2024-07-11] MEDS ORDERED: propofol inj 20 ML IV ONE (12:42)
[2024-07-11] MEDS ORDERED: LIDOcaine 2% (20mg/ml) 5ml vial ONE (12:42)
[2024-07-11] MEDS ORDERED: ondansetron/PF 4mg/2ml inj ONE (12:42)
[2024-07-11] MEDS ORDERED: hydrALAZINE 20mg/ml inj. IV PRN (12:50)
[2024-07-11] MEDS ORDERED: proCHLORperazine 10 MG/2 ml inj IV PRN (12:50)
[2024-07-11] MEDS ORDERED: ondansetron/PF 4mg/2ml inj IV PRN (12:50)
[2024-07-11] MEDS ORDERED: meperidine/PF 25mg/ml syringe IV PRN (12:50)
[2024-07-11] MEDS ORDERED: morphine 2 MG/ML inj. syringe IV PRN (12:50)
[2024-07-11] MEDS ORDERED: ringers solution, lacted 1,000 ML IV SCH (12:50)
[2024-07-11] MEDS ORDERED: HYDROmorphone/PF 0.2 MG/ML SYRINGE IV PRN ×2 (12:50)
[2024-07-11] MEDS ORDERED: morphine 4 MG/ML inj SYRINge IV PRN (12:50)
[2024-07-11] MEDS ORDERED: labetalol 20mg/4ml (5mg/ml) syringe IV PRN (12:50)
[2024-07-11] MEDS ORDERED: morphine 10mg/ml inj. ONE (14:11)
[2024-07-11] MEDS: acetaminophen 1,000mg/100ml IV 100 ML IV PRN (14:58)
== END 2024-07-11 15:34 | disposition home or self-care (01) ==
LOC: PAS 08:24
PROVIDERS: ATTEND Podiatrist Foot & Ankle Surgery
DX: M19.072 Primary osteoarthritis, left ankle and foot (principal); M25.372 Other instability, left ankle; M21.6X2 Other acquired deformities of left foot; Z87.891 Personal history of nicotine dependence; M75.42 Impingement syndrome of left shoulder; M17.12 Unilateral primary osteoarthritis, left knee; Z98.890 Other specified postprocedural states; Z79.899 Other long term (current) drug therapy; G89.18 Other acute postprocedural pain
CPT/HCPCS: 20902; 27696; 28740; 29895; 36415; 64447; 64450; 73620; 76942; 80053; 81003; 82948; 85025; 93005; A6222; A6223; C1713; J0131; J0690; J0735; J1100; J2003; J2250; J2274; J2405; J2704; J2795; J3010; J3490; J7030; J7120; Z7506; Z7508; Z7512; A4215; A4618; A6449; A7000